=== PATIENT | female | born 1970 | race Caucasian/White ===

== ENCOUNTER 2016-08-10 20:44 | Emergency (ER) | payer OTHER ==
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
[2016-08-10] MEDS ORDERED: CYCLOBENZAPRINE10 M1 PO (22:44)
[2016-08-10 22:57] VITALS: BP 146/82
== END 2016-08-10 22:56 ==
LOC: ERH 20:44
DX: S09.90XA Unspecified injury of head, initial encounter (principal); S06.0X0A Concussion without loss of consciousness, initial encounter; M54.12 Radiculopathy, cervical region; V49.40XA Driver injured in collision with unspecified motor vehicles in traffic accident, initial encounter; Y92.410 Unspecified street and highway as the place of occurrence of the external cause